=== PATIENT | female | born 1950 | race Caucasian/White ===

== ENCOUNTER → 2023-08-17 14:08 | Outpatient (CLI) | payer MEDICARE, MEDICAID, SELFPAY ==
--- NOTE | 2023-08-17 14:12 | DI.ECHO.S_ITS ---
[facility]---------+ [facility] +---------+ : : [address] : : : : [id number] : : : : Phone: [phone]---------+ Echocardiogram Report + + :Name: FRANNY KUO Study Date: 08/17/2023 Height: 64.5 in: :[facility] ReadingLocation: Weight: 200 lb : : Gender: Female BSA: 2.0 m2 : :: 1950 Age: 72 yrs BP: 115/74 mmHg: :Reason For Study: DYSPNEA : :Ordering Physician: HELEN ELLISONAPerformed By: Nicole Valero : :Referring: TESSA ELLISON : + + Interpretation Summary The ejection fraction is estimated to be 60-65%. The aortic valve is mildly calcified. There is moderate aortic stenosis. The calculated aortic valve area is 1.2 cm2. Procedure: A two-dimensional transthoracic echocardiogram with color flow and Doppler was performed. The study quality was technically adequate. There is no prior echocardiogram noted for this patient. The patient was in sinus rhythm with heart rates between 61-75 bpm during the exam. Left Ventricle: The left ventricle is normal in size and wall thickness. The ejection fraction is estimated to be 60-65%. Left ventricular wall motion is normal. Right Ventricle: The right ventricle is normal in size and function. Atria: The left atrial size is normal. Right atrial size is normal. There is no Doppler evidence for an interatrial shunt. Mitral Valve: The mitral valve leaflets are slightly calcified. There is mild mitral annular calcification. There is trace mitral regurgitation. Aortic Valve: The aortic valve is mildly calcified. There is moderate aortic stenosis. The peak aortic velocity is 2.8 m/sec. The aortic valve mean gradient is 21 mmHg. The calculated aortic valve area is 1.2 cm2. No aortic regurgitation is present. Tricuspid Valve: The tricuspid valve is normal in structure and function. There is mild tricuspid regurgitation. Pulmonic Valve: The pulmonic valve leaflets are thin and pliable; valve motion is normal. There is no pulmonic valvular regurgitation. Great Vessels: The aortic root is normal size. The dimensions of the ascending aorta are normal. The IVC is of normal diameter and collapses greater than 50% with a sniff. This suggests a low right atrial pressure of 3 mm Hg. Pericardium/ Pleura There is no pericardial effusion. There is no pleural effusion. MMode/2D Measurements & Calculations LVIDd: 4.7 cm LVOT diam: 2.1 cm LVIDs: 2.9 cm Ao root diam: 3.0 cm FS: 37.4 % asc Aorta Diam: 2.7 cm IVSd: 0.97 cm Ao Arch Diam (Prox Trans): 1.9 cm LVPWd: 0.87 cm LV nicholson. diameter/BSA (cm/m^2): 2.4 LV sys. diameter/BSA (cm/m^2): 1.5 LA A2 area: 16.2 cm2 RA long axis: 4.2 cm LA A4 area: 11.5 cm2 RA area: 12.0 cm2 LA length (vol): 4.4 cm RA vol: 29.5 ml LA vol: 35.4 ml RA : 15.0 ml/m2 LA vol index: 18.0 ml/m2 IVC diam: 0.84 cm RVD1 (basal): 3.5 cm TAPSE: 2.3 cm Doppler Measurements & Calculations Ao V2 max: 288.0 cm/sec LVOT Max Matt: 100.8 cm/sec Ao V2 mean: 217.3 cm/sec LV V1 max P.1 mmHg Ao max P.2 mmHg LV V1 VTI: 20.7 cm Ao mean P.5 mmHg MARY CARMEN(I,D): 1.2 cm2 Ao V2 VTI: 61.7 cm MARY CARMEN(V,D): 1.2 cm2 sev ratio: 0.34 MARY CARMEN indexed to BSA (cm^2/m^2): 0.59 MV E max matt: 72.0 cm/sec PA V2 max: 104.6 cm/sec MV A max matt: 101.6 cm/sec PA V2 mean: 75.8 cm/sec MV E/A: 0.71 PA mean P.5 mmHg Med Peak E' Matt: 6.8 cm/sec PA pr(Accel): 31.0 mmHg E/E' med: 10.5 Lat Peak E' Matt: 7.3 cm/sec E/E' lat: 9.9 E/e' average: 10.2 MV dec time: 0.27 sec [facility] 71.6 ml Reading Physician:04:25 PM
== END ==
PROVIDERS: PCP Physician Assistant Medical; Referring Provider Physician Assistant Medical; Visit Provider Physician Assistant Medical
DX: R06.09 Other forms of dyspnea (principal); I08.3 Combined rheumatic disorders of mitral, aortic and tricuspid valves
CPT/HCPCS: 93306